=== PATIENT | female | born 1975 | race Caucasian/White ===

== ENCOUNTER 2020-07-28 04:06 | Emergency (ER) | payer OTHER ==
[~2020-07-28] VITALS: Ht 152.4 cm; Wt 86.2 kg
[~2020-07-28 04:06] MED LIST: METF-494 PO
[2020-07-28] MEDS ORDERED: FERR325T27 PO (04:13)
[2020-07-28] MEDS ORDERED: GABA-534 PO (04:13)
[2020-07-28] MEDS ORDERED: ATOR20TA PO (04:13)
[2020-07-28] MEDS ORDERED: GLIP5TAB13 PO (04:13)
[2020-07-28] MEDS ORDERED: ASPI81TA31 PO (04:13)
[2020-07-28] MEDS ORDERED: BENA40TA8 PO (04:13)
--- NOTE | 2020-07-28 04:14 | NUR ---
Pt provided urine sample, sent to lab.
--- NOTE | 2020-07-28 04:15 | NUR ---
ADMITTED TO ER -RM-2A AMBULATORY C/O PAINFUL ON URINATION. DR PINK WILL SEE & EVALUATE PT.
[2020-07-28 04:28] LABS: *BILIRUBIN,URIN NEGATIVE (NEGATIVE); *BLOOD, URINE NEGATIVE (NEGATIVE); *CLARITY,URINE CLEAR (CLEAR); *COLOR,URINE YELLOW (YELLOW); *KETONES,URINE NEGATIVE (NEGATIVE); *UROBILINOGEN,URINE 0.2 E.U./dl (NORMAL); LEUKOCYTE ESTERASE ,URINE NEGATIVE (NEGATIVE); NITRITE, URINE NEGATIVE (NEGATIVE); PH,URINE 5.5 (5.0-8.0)
[2020-07-28 04:29] LABS: UGLUCOSE 2+ (NEGATIVE)
[2020-07-28] MEDS ORDERED: HYDROCODONE/APAP 5-325MG TABLET PO ONE (04:45)
[2020-07-28] MEDS ORDERED: HYDROCODONE/APAP 5-325MG TABLET ONE (04:54)
[2020-07-28 04:58] VITALS: BP 114/71
--- NOTE | 2020-07-28 04:59 | NUR ---
Patient discharged to home in stable condition. Written and verbal after care instructions given. Patient verbalizes understanding of instructions. Stressed follow up or return to ER for worsening s/s.
== END 2020-07-28 04:59 | disposition home or self-care (01) ==
LOC: ER 04:08
DX: R30.0 Dysuria (principal); M54.5 Low back pain; E78.5 Hyperlipidemia, unspecified; E11.9 Type 2 diabetes mellitus without complications; Z79.84 Long term (current) use of oral hypoglycemic drugs; Z79.899 Other long term (current) drug therapy; Z79.82 Long term (current) use of aspirin
CPT/HCPCS: A4663